=== PATIENT | male | born 1965 | race Caucasian/White ===

== ENCOUNTER 2023-06-01 21:59 | Outpatient (CLI) | payer OTHER, SELFPAY | END 2023-06-01 22:00 | disposition home or self-care (01) | PROVIDERS: Visit Provider Family Medicine | DX: R55 Syncope and collapse (principal) | CPT/HCPCS: A0425; A0427 ==

== ENCOUNTER 2023-06-01 22:39 | Inpatient (IN) | payer OTHER, SELFPAY ==
[2023-06-01] VITALS (10 sets, daily range): BP systolic 115–163; BP diastolic 67–78; PULSE 91–98; RESP 20; TEMP 36.3; O2SAT 96–100
--- NOTE | 2023-06-01 23:08 | ED_ITS ---
HPI - Syncope General Time Seen by Provider: 23:08 Date Seen: 06/01/23 Chief Complaint: Syncope/Fainted Stated Complaint: Syncopal Time Seen by Provider: 06/01/23 22:56 Source: patient and EMS Mode of arrival: EMS Limitations: no limitations History of Present Illness HPI narrative: 58-year-old male with history of hypertension and coronary atherosclerosis, presents today with a syncopal episode. 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 After the game, felt like he was taking a prolonged time to recover with continued fast heartbeat although no sensation of skipped beats, became lightheaded, stood up and passed out. Says he did hit his head, no other complaints although still having some point chest pain on the left. Related Data Home Medications Medication Instructions Recorded Confirmed chlorthalidone 25 mg tablet 25 mg PO DAILY 06/01/23 06/01/23 dulaglutide 0.75 mg/0.5 mL 0.75 mg subcut QWEEK 06/01/23 06/01/23 subcutaneous pen injector (Trulicity) duloxetine 60 mg capsule,delayed 80 mg PO DAILY 06/01/23 06/01/23 release (Cymbalta) lisinopril 40 mg tablet 40 mg PO DAILY 06/01/23 06/01/23 metformin 750 mg tablet,extended 750 mg PO DAILY 06/01/23 06/01/23 release 24 hr metoprolol tartrate 75 mg tablet 75 mg PO BID 06/01/23 06/01/23 rosuvastatin 40 mg tablet 40 mg PO DAILY 06/01/23 06/01/23 tramadol 50 mg tablet 25 mg PO Q4-6H PRN 06/01/23 06/01/23 Allergies Allergy/AdvReac Type Severity Reaction Status Date / Time droperidol Allergy Verified 06/01/23 22:53 PFSH PFSH Social History Smoking Status: Never smoker Non-prescribed substance use: denies use Exam Narrative: Exam Narrative: General: Well-developed and well-nourished, no acute distress Head: Bruising and abrasion over the left TMJ Eyes: Pupils are equal reactive, extraocular motions intact, conjunctiva clear ENT: Abrasion over the nasal bridge with question of slight deviation of the right, abrasion of the left ear helix with no laceration Neck: No midline cervical tenderness, full spontaneous range of motion the neck, trachea midline, no adenopathy Heart: Regular rate and rhythm no murmurs or thrills Lungs: Clear to auscultation bilaterally without wheezes or crackles. Point tenderness of the left anterior chest wall reproduces complaint. Abdomen: Soft, nontender, nondistended with active bowel sounds Musculoskeletal: No tenderness, deformity, or edema Neurologic: Awake, alert, and oriented x3, no gross focal neurologic deficits, cranial nerves intact as tested Psych: Mood and affect are appropriate Skin: No rashes Const: Vital Signs, click to edit/add: Vital Signs - 24 hr 06/01/23 22:44 06/01/23 22:47 06/01/23 22:48 Temperature 97.3 F L Pulse Rate 96 98 Pulse Rate [Pulse Oximeter] 94 Respiratory Rate 20 Blood Pressure 163/78 H Blood Pressure [Ri ght Upper Arm] 163/78 H Pulse Oximetry 99 99 99 Oxygen Delivery Me thod Room Air 06/01/23 23:00 06/01/23 23:02 06/01/23 23:15 Temperature Pulse Rate 93 93 91 Pulse Rate [Pulse Oximeter] Respiratory Rate Blood Pressure 124/73 Blood Pressure [Ri ght Upper Arm] Pulse Oximetry 96 99 99 Oxygen Delivery Me thod 06/01/23 23:30 06/01/23 23:32 06/01/23 23:33 Temperature Pulse Rate 91 91 91 Pulse Rate [Pulse Oximeter] Respiratory Rate Blood Pressure 115/67 Blood Pressure [Ri ght Upper Arm] Pulse Oximetry 98 100 99 Oxygen Delivery Me thod 06/01/23 23:45 06/02/23 00:00 06/02/23 00:05 Temperature Pulse Rate 91 89 87 Pulse Rate [Pulse Oximeter] Respiratory Rate Blood Pressure Blood Pressure [Ri ght Upper Arm] Pulse Oximetry 98 98 99 Oxygen Delivery Me thod 06/02/23 00:15 06/02/23 00:30 06/02/23 00:35 Temperature Pulse Rate 90 89 91 Pulse Rate [Pulse Oximeter] Respiratory Rate Blood Pressure Blood Pressure [Ri ght Upper Arm] Pulse Oximetry 95 96 97 Oxygen Delivery Me thod 06/02/23 00:45 06/02/23 01:00 06/02/23 01:05 Temperature Pulse Rate 88 89 90 Pulse Rate [Pulse Oximeter] Respiratory Rate Blood Pressure Blood Pressure [Ri ght Upper Arm] Pulse Oximetry 95 95 98 Oxygen Delivery Me thod 06/02/23 01:15 Temperature Pulse Rate 90 Pulse Rate [Pulse Oximeter] Respiratory Rate Blood Pressure Blood Pressure [Ri ght Upper Arm] Pulse Oximetry 98 Oxygen Delivery Me thod Course Course ED Course: Patient seen examined, prior records are reviewed. Patient presents today with a syncopal episode after activity. Facial abrasion left cheek abrasion, CT scan of the head and face ordered. This is preceded by palpitations and patient been having palpitations, cardiac evaluation ordered including EKG and troponin. Reevaluation(s) Time of Reevaluation #1: 23:29 Reevaluation #1: Reviewed most recent cardiology visit from May 31 when patient was seen for follow-up of coronary disease and palpitations, noted at that time to have elevated CT calcium score in 2014 which is been medically managed, negative stress test in 2020, negative stress test in May 2022, also had a Holter monitor 05/25/2023 which demonstrated sinus rhythm with intermittent first- degree AV block with for runs SVT longest run 11 beats, at that visit was instructed increase metoprolol to 75 mg twice a day which he has started. Time of Reevaluation #2: 00:27 Reevaluation #2: EKG independently interpreted by me without acute changes. Labs ordered and independently interpreted by me with potassium 2.4, oral and IV replacement ordered. Troponin is slightly elevated at 0.09, D-dimer is significantly elevated at 1.48. Creatinine slightly elevated for patient at 1.6, this may be causing slight elevation in the troponin. I did review outside records, most recent basic metabolic panel in October 2022 creatinine 0.96. Time of Reevaluation #3: 01:06 Reevaluation #3: Reviewed lab results with patient so far. We discussed his slightly elevated troponin in the setting of recent exercise as well as syncope and elevated creatinine, discussed repeat troponin testing at 1:30 a.m.. We also discussed the elevated D-dimer and concern for pulmonary embolism as source of elevated troponin, chest pain, and syncopal episode. Discussed that aspirin is not pro tective from DVT or pulmonary embolism. Discussed further testing with CT PE study. Patient declines this after discussing risks and benefits. We discussed disposition. If repeat troponin is stable patient will be admitted for replacement of potassium and further cardiac evaluation. If repeat troponin is elevated, patient will need to be transferred to center with angiogram capabilities. Additional Reevaluation(s): 2:19 a.m. check with nursing regarding repeat troponin, does not appear that has been done. CT scan of the head independently interpreted by me negative for acute findings, CT scan of the face independently interpreted by me negative for acute fracture. Chest x-ray interview leads reviewed by me with questionable fracture of the 5th rib on the left, no pneumothorax, hemothorax, or intrathoracic abnormalities. 3:07 a.m. repeat troponin is stable at 0.07. Patient will be admitted for further evaluation treatment for syncope with palpitations, hypokalemia, mild acute kidney injury. Care discussed with Dr. Shah, hospitalist for admission. Vital Signs Vital signs: Initial Vital Signs Temperature 97.3 F L 06/01/23 22:44 Temperature Source Temporal Artery Scan 06/01/23 22:44 Pulse Rate 94 06/01/23 22:44 Pulse Strength 3+ Normal 06/01/23 22:44 Respiratory Rate 20 06/01/23 22:44 Blood Pressure 163/78 H 06/01/23 22:44 Blood Pressure Mean 106 H 06/01/23 22:44 Blood Pressure Position Sitting 06/01/23 22:44 Pulse Oximetry 99 06/01/23 22:44 Oxygen Delivery Method Room Air 06/01/23 22:44 Vital Signs Temperature 97.3 F L 06/01/23 22:44 Pulse Rate 94 06/01/23 22:44 Respiratory Rate 20 06/01/23 22:44 Blood Pressure 163/78 H 06/01/23 22:44 Pulse Oximetry 99 06/01/23 22:44 Oxygen Delivery Method Room Air 06/01/23 22:44 Temperature 97.3 F L 06/01/23 22:44 Pulse Rate 90 06/02/23 01:15 Respiratory Rate 20 06/01/23 22:44 Blood Pressure 115/67 06/01/23 23:32 Pulse Oximetry 98 06/02/23 01:15 Oxygen Delivery Method Room Air 06/01/23 22:44 Medications Administered Medications: Discontinued Medications Generic Name Dose Route Start Last Admin Trade Name Freq PRN Reason Stop Dose Admin Acetaminophen 1,000 mg 06/02/23 00:06 06/02/23 00:26 Acetaminophen 500 Mg Tablet PO 06/02/23 00:07 1,000 mg ONCE ONE Administration Sodium Chloride 1,000 mls @ 1,000 mls/hr 06/01/23 23:30 06/02/23 02:35 0.9 % Sodium Chloride 1000 Ml IV 06/02/23 00:29 Infused .Q1H YESSY Infusion Potassium Chloride 10 meq in 100 mls @ 100 mls/hr 06/02/23 00:26 06/02/23 02:35 Potassium Chloride IVPB 06/02/23 01:25 Infused ONCE ONE Infusion Potassium Bicarbonate 25 meq 06/02/23 00:25 06/02/23 00:34 Potassium Bicarb 25 Meq Effervescent Tab PO 06/02/23 00:26 25 meq ONCE ONE Administration MDM - Syncope Lab Data Labs: Lab Results 06/01/23 06/01/23 06/02/23 Range/Units 23:27 23:55 00:00 WBC 13.13 H (4.50-11.00) K/uL RBC 4.93 (4.30-5.90) m/uL Hgb 13.2 L (13.5-17.5) gm/dL Hct 39.6 (37.0-53.0) % MCV 80 (80-100) fL MCH 27 (26-34) pg MCHC 33 (32-36) gm/dL RDW Coeff of Cabrera 13.9 (11.5-15.5) % Plt Count 297 (140-440) K/uL Neut % (Auto) 71.6 (42.0-72.0) % Lymph % (Auto) 19.2 L (20-44) % Tucker % (Auto) 8.4 (0.0-11.0) % Eos % (Auto) 0.2 (0.0-7.0) % Baso % (Auto) 0.2 (0.0-3.0) % Neut # (Auto) 9.40 H (1.7-7.0) K/uL Lymph # (Auto) 2.50 (0.90-2.90) K/uL Tucker # (Auto) 1.10 H (0.00-0.90) K/UL Eos # (Auto) 0.00 (0.00-0.50) K/uL Baso # (Auto) 0.00 (0.00-0.30) K/uL Abs Immat Gran (auto) 0.10 (0.00-0.30) K/uL Imm/Tot Granulo (auto) 0.4 % D-Dimer Quant (PE/DVT) 1.48 H (0.00-0.50) ug/ml Sodium 135 (135-149) mmol/L Potassium 2.4 L* (3.6-5.1) mmol/L Chloride 96 (96-114) mmol/L Carbon Dioxide 24 (20-32) mmol/L Anion Gap 15 (7-15) mEq/L BUN 24 (7-30) mg/dL Creatinine 1.6 H (0.5-1.5) mg/dL Estimated GFR 49 ml/min Glucose 119 H (60-115) mg/dL Calcium 9.4 (8.4-10.6) mg/dL Magnesium 1.7 (1.5-2.6) mg/dL NT-Pro-B Natriuret Pep 595 pg/mL POC Troponin I 0.07 H (0.01-0.04) ng/ml 06/02/23 Range/Units 01:30 WBC (4.50-11.00) K/uL RBC (4.30-5.90) m/uL Hgb (13.5-17.5) gm/dL Hct (37.0-53.0) % MCV (80-100) fL MCH (26-34) pg MCHC (32-36) gm/dL RDW Coeff of Cabrera (11.5-15.5) % Plt Count (140-440) K/uL Neut % (Auto) (42.0-72.0) % Lymph % (Auto) (20-44) % Tucker % (Auto) (0.0-11.0) % Eos % (Auto) (0.0-7.0) % Baso % (Auto) (0.0-3.0) % Neut # (Auto) (1.7-7.0) K/uL Lymph # (Auto) (0.90-2.90) K/uL Tucker # (Auto) (0.00-0.90) K/UL Eos # (Auto) (0.00-0.50) K/uL Baso # (Auto) (0.00-0.30) K/uL Abs Immat Gran (auto) (0.00-0.30) K/uL Imm/Tot Granulo (auto) % D-Dimer Quant (PE/DVT) (0.00-0.50) ug/ml Sodium (135-149) mmol/L Potassium (3.6-5.1) mmol/L Chloride (96-114) mmol/L Carbon Dioxide (20-32) mmol/L Anion Gap (7-15) mEq/L BUN (7-30) mg/dL Creatinine (0.5-1.5) mg/dL Estimated GFR ml/min Glucose (60-115) mg/dL Calcium (8.4-10.6) mg/dL Magnesium (1.5-2.6) mg/dL NT-Pro-B Natriuret Pep pg/mL POC Troponin I 0.07 H (0.01-0.04) ng/ml Discharge Plan Discharge Clinical Impression: Acute kidney injury, Heart palpitations, Coronary artery disease, Syncope, Acute hypokalemia, Type 2 diabetes mellitus Prescriptions: No Action metoprolol tartrate 75 mg tablet 75 mg PO BID lisinopril 40 mg tablet 40 mg PO DAILY chlorthalidone 25 mg tablet 25 mg PO DAILY rosuvastatin 40 mg tablet 40 mg PO DAILY metformin 750 mg tablet extended release 24 hr 750 mg PO DAILY duloxetine [Cymbalta] 60 mg capsule,delayed release(DR/EC) 80 mg PO DAILY Trulicity 0.75 mg/0.5 mL pen injector 0.75 mg subcut QWEEK tramadol 50 mg tablet 25 mg PO Q4-6H PRN Follow Up/Referrals: Provider,Not a Local [Primary Care Provider] -
--- NOTE | 2023-06-01 23:26 | CRLHL7_ITS ---
For Patients: As a result of the Cures Act, medical imaging exams and procedure reports are released immediately into your electronic medical record. You may view this report before your referring provider. If you have questions, please contact your health care provider. INDICATION: syncope, fall...impact left upper chest and face TECHNIQUE: CT maxillofacial without contrast. COMPARISON: None. FINDINGS: Facial bones: No fractures or bone lesions. Specifically the nasal bones, temporomandibular joints, maxilla and mandible appear intact. Orbits and globes: Borderline bilateral proptosis. Globes are intact. No sign of intraorbital hemorrhage or emphysema. Sinuses: No acute or significant findings. Soft tissues: Small left frontal scalp contusion. IMPRESSION: Small left frontal scalp contusion. No evidence of facial fracture. Please note that all CT scans at this facility use dose modulation, iterative reconstruction, and/or weight-based dosing when appropriate to reduce radiation dose to as low as reasonably achievable. Dictated by Donavon Brooke MD @ 06/02/2023 5:35:25 AM (Electronically Signed)
--- NOTE | 2023-06-01 23:26 | CRLHL7_ITS ---
For Patients: As a result of the Century Cures Act, medical imaging exams and procedure reports are released immediately into your electronic medical record. You may view this report before your referring provider. If you have questions, please contact your health care provider. INDICATION: syncope, fall. impact left upper chest and face TECHNIQUE: Head CT without contrast. COMPARISON: None. FINDINGS: CSF spaces: Mild diffuse global parenchymal volume loss. Brain parenchyma and extra-axial spaces: There are mild nonspecific low attenuation white matter changes consistent with chronic microvascular disease. No sign of mass effect, hemorrhage, or midline shift. 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 Skull base and calvarium: The visualized paranasal sinuses and mastoid air cells demonstrate no acute or significant findings. No skull fractures. Small left frontal scalp contusion. IMPRESSION: 1. Small left frontal scalp contusion. No evidence of underlying skull fracture or intracranial hemorrhage. 2. Mild global parenchymal volume loss and chronic microvascular ischemic changes. Remote right basal ganglia lacunar type infarct. Please note that all CT scans at this facility use dose modulation, iterative reconstruction, and/or weight-based dosing when appropriate to reduce radiation dose to as low as reasonably achievable. Dictated by Donavon Brooke MD @ 06/02/2023 5:29:09 AM (Electronically Signed)
[2023-06-02] VITALS (35 sets, daily range): BP systolic 101–137; BP diastolic 62–88; PULSE 69–91; RESP 16–20; TEMP 36.7; O2SAT 94–99; BMI 35.8
[2023-06-02 00:05] LABS: Basophils Percent Auto 0.2 % (0.0-3.0); Eosinophils Percent Auto 0.2 % (0.0-7.0); Hematocrit 39.6 % (37.0-53.0); Hemoglobin* 13.2 gm/dL (13.5-17.5); Immature Granulocytes Pct Auto 0.4 %; Lymphocytes Percent Auto 19.2 % (20-44); Mean Corpuscular HGB Conc 33 gm/dL (32-36); Mean Corpuscular Hemoglobin 27 pg (26-34); Mean Corpuscular Volume 80 fL (80-100); Monocytes Percent Auto 8.4 % (0.0-11.0); Neutrophils Percent Auto 71.6 % (42.0-72.0); Platelet Count* 297 K/uL (140-440); RDW Coefficient of Variation % 13.9 % (11.5-15.5); Red Blood Count 4.93 m/uL (4.30-5.90); White Blood Count* 13.13 K/uL (4.50-11.00)
[2023-06-02 00:11] LABS: Slide Review Reflex No
[2023-06-02 00:17] LABS: Chloride* 96 mmol/L (96-114); Sodium* 135 mmol/L (135-149)
[2023-06-02 00:20] LABS: Anion Gap 15 mEq/L (7-15); Blood Urea Nitrogen* 24 mg/dL (7-30); Calcium* 9.4 mg/dL (8.4-10.6); Carbon Dioxide* 24 mmol/L (20-32); Creatinine* 1.6 mg/dL (0.5-1.5); Estimated Glomerular Filt Rate 49 ml/min; Glucose* 119 mg/dL (60-115)
[2023-06-02 00:22] LABS: D Dimer Quantitative* 1.48 ug/ml (0.00-0.50)
[2023-06-02] MEDS: 0.9 % SODIUM CHLORIDE 1000 ml 1,000 ML IV ×2 (00:22→05:26)
[2023-06-02 00:24] LABS: Magnesium* 1.7 mg/dL (1.5-2.6)
[2023-06-02 00:24] LABS: Troponin, Point-of-Care* 0.07 ng/ml (0.01-0.04)
[2023-06-02 00:25] LABS: Potassium* 2.4 mmol/L (3.6-5.1)
[2023-06-02] MEDS: ACETAMINOPHEN 500 MG TABLET 1000 MG PO (00:26)
[2023-06-02 00:34] LABS: NT Pro B Type NatriureticPept* 595 pg/mL
[2023-06-02] MEDS: POTASSIUM BICARB 25 MEQ EFFERVESCENT TAB PO ×2 (00:34→03:29)
[2023-06-02] MEDS: POTASSIUM CHLORIDE 10 MEQ/100 ML PIGGYBACK 100 MEQ IVPB (00:43)
--- NOTE | 2023-06-02 01:21 | CRLHL7_ITS ---
For Patients: As a result of the Cures Act, medical imaging exams and procedure reports are released immediately into your electronic medical record. You may view this report before your referring provider. If you have questions, please contact your health care provider. INDICATION: syncope, fall, impact left upper chest and face, pain marked with BB TECHNIQUE: Chest and left ribs 3 views. COMPARISON: None FINDINGS: Cardiovascular and mediastinum: Mild enlargement of the cardiomediastinal silhouette. Lungs and pleural spaces: Lungs are clear. No sign of infiltrate. No sign of pleural effusion. No pneumothorax. Bones and soft tissues: Suspect nondisplaced fracture involving the posterior left 5th rib. IMPRESSION: 1. Suspect nondisplaced fracture involving the posterior left 5th rib. 2. Mild enlargement of the cardiomediastinal silhouette. Dictated by Donavon Brooke MD @ 06/02/2023 5:39:56 AM (Electronically Signed)
[2023-06-02 02:56] LABS: Troponin, Point-of-Care* 0.07 ng/ml (0.01-0.04)
--- NOTE | 2023-06-02 03:29 | ED.NURSE ---
nurse to nurse report given to shani BRANDON on med surg. patient going to room 261.
--- NOTE | 2023-06-02 04:34 | W.PM.TELEH&P ---
Telehealth- H&P: HPI History of Present Illness Time Seen by Provider: 04:00 Date Seen: 06/02/23 Chief complaint: Syncopal Narrative: Mega Nance is seen as an Interactive Telehealth visit. Mega Nance is a 58 yearGentleman with a past medical history of essential hypertension, type 2 diabetes, orthostatic hypotension and nonobstructive coronary artery disease who presented to the emergency room tonight after a syncopal episode. 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 After the game in the locker room he felt pretty much worn out and just took a longer time to recover than he anticipated. He was drinking some beverages and he got up to get another glass of water and he felt immediately lightheaded and he turned around to go back to the chair and next he knew he woke up on the ground where he did hit his head on the bench. He he does not think he was out for more than 2 seconds. He was able to get himself up unassisted and to still felt lightheaded he drank some water and asked an wellness trainer to check his blood pressure which was 100/70. Orthostatics done there by the paramedics had a blood pressure 100/70 but when he sat up it went to 80/60 his pulse was around 100 and when he sat up it went to 140. He came to the emergency room. He did not have any chest pain or any unusual breathlessness during the game. He had some chest pain afterwards over the left chest wall where he fell and that was tender to the touch. He has not had any recent illnesses. He did have some medication changes by his licensed aircraft maintenance engineer recently. Because of his history of orthostatic dizziness and episodes of palpitations he has had a recent 48-hour Holter monitor that showed some short runs of SVT to 11 beats occasional PACs and PVCs. And his licensed aircraft maintenance engineer recommended increasing his metoprolol from 50 mg twice daily to 75 mg twice daily. He took the first higher dose the evening before these ballgame. In the emergency room he had 2 troponins 0.07 that are slightly elevated than the norm here but they did not change.EKG was interpreted as nonacute. He was discovered to be critically hypokalemic down to 2.4. He received 10 mill equivalents of IV potassium and 50 mill equivalents of p.o. potassium in the emergency room he is being admitted for observation status for telemetry after syncopal episode Review of Systems Narrative: Review of systems is positive for recent onset of palpitations have been evaluated by the licensed aircraft maintenance engineer and Holter monitor new onset positional orthostatic dizziness. 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 Blood sugars have been under good control he has a continuous glucose monitor. No recent illnesses.Review of systems otherwise negative [facility] Medical History (Updated 06/02/23 @ 05:21 by Xu Shah MD) Type 2 diabetes mellitus ?E11.9 - Type 2 diabetes mellitus without complications (ICD-10) Coronary artery disease ?I25.10 - Atherosclerotic heart disease of [place] coronary artery without angina pectoris (ICD-10) Heart palpitations ?R00.2 - Palpitations (ICD-10) Social History (Updated 06/02/23 @ 04:48 by Xu Shah MD) Narrative: From [place]. . 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 non-smoker What is your current living situation?: I presently have a place to live Problems where you live: no known problems Problems where you live details: n/a In the past 12 months, utilities in danger of being shut off: no In past 12 months, lack of transportation kept you from medical appts, meetings, work, or getting things needed for daily living: no In the past 12 mos, have been you worried that your food would run out before you had money to buy more?: never true In the past 12 mos, the food you bought just didn't last and you didn't have money to buy more?: never true Highest level of school completed/degree received: Master's degree Smoking Status: Never smoker How often do you have a drink containing alcohol: never AUDIT-C Alcohol total score: 0 Non-prescribed substance use: denies use Caffeine: Yes How often does anyone, including family, friends and others, physically hurt you: never How often does anyone, including family, friends and others, insult or talk down to you: never How often does anyone, including family, friends and others, threaten you with harm: never How often does anyone, including family, friends and others, scream or curse at you: never service: No Meds Home Medications and Allergies Home Medications Medication Instructions Recorded Confirmed Type chlorthalidone 25 mg tablet 25 mg PO DAILY 06/01/23 06/01/23 History dulaglutide 0.75 mg/0.5 mL 0.75 mg subcut QWEEK 06/01/23 06/01/23 History subcutaneous pen injector (Trulicity) duloxetine 60 mg capsule,delayed 80 mg PO DAILY 06/01/23 06/01/23 History release (Cymbalta) lisinopril 40 mg tablet 40 mg PO DAILY 06/01/23 06/01/23 History metformin 750 mg tablet,extended 750 mg PO DAILY 06/01/23 06/01/23 History release 24 hr metoprolol tartrate 75 mg tablet 75 mg PO BID 06/01/23 06/01/23 History rosuvastatin 40 mg tablet 40 mg PO DAILY 06/01/23 06/01/23 History tramadol 50 mg tablet 25 mg PO Q4-6H PRN 06/01/23 06/01/23 History Home Medication Comments: Metoprolol was just recently increased from 50 twice daily to 75 mg twice daily starting yesterday. Allergies Allergy/AdvReac Type Severity Reaction Status Date / Time droperidol Allergy Verified 06/01/23 22:53 Exam Narrative Exam Narrative: Physical Exam GENERAL: ?vital signs reviewed, well developed and nourished, in no distressPleasant cooperative HEENT: Positive small abrasion over the bridge of the nose as well as contusion on the left zygomatic area and small abrasion over the left pinna pupils are equal round and reactive to light, extraocular movements are grossly within normal limits and oral mucosa is moist. NECK: Supple without lymphadenopathy or thyromegaly according to nursing staff examination observationNo midline tenderness HEART: Regular rate and rhythm without any rubs, murmurs, or gallops. Chest wall positive tenderness over the left upper thorax at the costal chondral junction without crepitus LUNGS: Clear to auscultation bilaterally with good air movement throughout ABDOMEN: Observation from nurse assisted exam, abdomen appears soft, nontender, and nondistended with Positive bowel sounds noted. EXTREMITIES: Strength and sensation is observed to be grossly within normal limits in the upper and lower extremities.? No focal strength deficit is observed. SKIN:? Observed warm and dry with color normal Const Vital Signs, click to edit/add: Vital Signs - 24 hr 06/01/23 22:44 06/01/23 22:47 06/01/23 22:48 Temperature 97.3 F L Pulse Rate 96 98 Pulse Rate [Pulse Oximeter] 94 Respiratory Rate 20 Blood Pressure 163/78 H Blood Pressure [Left Arm] Blood Pressure [Right Upper Arm] 163/78 H Pulse Oximetry 99 99 99 Oxygen Delivery Method Room Air 06/01/23 23:00 06/01/23 23:02 06/01/23 23:15 Temperature Pulse Rate 93 93 91 Pulse Rate [Pulse Oximeter] Respiratory Rate Blood Pressure 124/73 Blood Pressure [Left Arm] Blood Pressure [Right Upper Arm] Pulse Oximetry 96 99 99 Oxygen Delivery Method 06/01/23 23:30 06/01/23 23:32 06/01/23 23:33 Temperature Pulse Rate 91 91 91 Pulse Rate [Pulse Oximeter] Respiratory Rate Blood Pressure 115/67 Blood Pressure [Left Arm] Blood Pressure [Right Upper Arm] Pulse Oximetry 98 100 99 Oxygen Delivery Method 06/01/23 23:45 06/02/23 00:00 06/02/23 00:05 Temperature Pulse Rate 91 89 87 Pulse Rate [Pulse Oximeter] Respiratory Rate Blood Pressure Blood Pressure [Left Arm] Blood Pressure [Right Upper Arm] Pulse Oximetry 98 98 99 Oxygen Delivery Method 06/02/23 00:15 06/02/23 00:30 06/02/23 00:35 Temperature Pulse Rate 90 89 91 Pulse Rate [Pulse Oximeter] Respiratory Rate Blood Pressure Blood Pressure [Left Arm] Blood Pressure [Right Upper Arm] Pulse Oximetry 95 96 97 Oxygen Delivery Method 06/02/23 00:45 06/02/23 01:00 06/02/23 01:05 Temperature Pulse Rate 88 89 90 Pulse Rate [Pulse Oximeter] Respiratory Rate Blood Pressure Blood Pressure [Left Arm] Blood Pressure [Right Upper Arm] Pulse Oximetry 95 95 98 Oxygen Delivery Method 06/02/23 01:15 06/02/23 01:47 06/02/23 02:00 Temperature Pulse Rate 90 91 89 Pulse Rate [Pulse Oximeter] Respiratory Rate Blood Pressure Blood Pressure [Left Arm] Blood Pressure [Right Upper Arm] Pulse Oximetry 98 94 94 Oxygen Delivery Method 06/02/23 02:15 06/02/23 02:30 06/02/23 02:45 Temperature Pulse Rate 89 89 87 Pulse Rate [Pulse Oximeter] Respiratory Rate Blood Pressure Blood Pressure [Left Arm] Blood Pressure [Right Upper Arm] Pulse Oximetry 97 96 94 Oxygen Delivery Method 06/02/23 03:00 06/02/23 03:15 06/02/23 04:02 Temperature Pulse Rate 84 88 Pulse Rate [Pulse Oximeter] 81 Respiratory Rate 16 Blood Pressure Blood Pressure [Left Arm] 117/75 Blood Pressure [Right Upper Arm] Pulse Oximetry 96 95 97 Oxygen Delivery Method Room Air Hospitalist - H&P: Result Labs Labs: Laboratory Results - last 24 hr 06/01/23 06/01/23 06/02/23 23:27 23:55 00:00 WBC 13.13 H RBC 4.93 Hgb 13.2 L Hct 39.6 MCV 80 MCH 27 MCHC 33 RDW Coeff of [place]rera 13.9 Plt Count 297 Neut % (Auto) 71.6 Lymph % (Auto) 19.2 L [place] % (Auto) 8.4 Eos % (Auto) 0.2 Baso % (Auto) 0.2 Neut # (Auto) 9.40 H Lymph # (Auto) 2.50 [place] # (Auto) 1.10 H Eos # (Auto) 0.00 Baso # (Auto) 0.00 Abs Immat Gran (auto) 0.10 Imm/Tot Granulo (auto) 0.4 D-Dimer Quant (PE/DVT) 1.48 H Sodium 135 Potassium 2.4 L* Chloride 96 Carbon Dioxide 24 Anion Gap 15 BUN 24 Creatinine 1.6 H Estimated GFR 49 Glucose 119 H Calcium 9.4 Magnesium 1.7 NT-Pro-B Natriuret Pep 595 POC Troponin I 0.07 H 06/02/23 01:30 WBC RBC Hgb Hct MCV MCH MCHC RDW Coeff of [place]rera Plt Count Neut % (Auto) Lymph % (Auto) [place] % (Auto) Eos % (Auto) Baso % (Auto) Neut # (Auto) Lymph # (Auto) [place] # (Auto) Eos # (Auto) Baso # (Auto) Abs Immat Gran (auto) Imm/Tot Granulo (auto) D-Dimer Quant (PE/DVT) Sodium Potassium Chloride Carbon Dioxide Anion Gap BUN Creatinine Estimated GFR Glucose Calcium Magnesium NT-Pro-B Natriuret Pep POC Troponin I 0.07 H ECG Attestation: I personally reviewed and interpreted this ECG as follows: (Sinus rhythm rate 90 bpm [place] -85 left anterior fascicular block prolonged QT corrected 0.51 no ischemic change) ECG interpretation date: 06/02/23 ECG interpretation time: 05:05 Prior ECG tracings: not available for review Assessment and Plan Assessment and plan (1) Syncope: Status: Acute (2) Acute hypokalemia: Status: Acute (3) Acute kidney injury: Status: Acute (4) Type 2 diabetes mellitus: Status: Acute Plan 58-year-old gentleman with history of hypertension well-controlled type 2 diabetes palpitations and recent orthostatic dizziness who had a syncopal episode after 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 Etiology most likely is a combination of volume depletion from exertion as well as the severe hypokalemia and recent increase in beta-martell dosage. Do not suspect ischemia. 1. Mid observation telemetry 2. Replete potassium 3. Recheck BMP magnesium and troponin in the a.m. 4. Another liter of normal saline 5. Permanently discontinue chlorthalidone 6. Reduce metoprolol back down to 50 mg twice daily 7. Refer back to his primary licensed aircraft maintenance engineer for consideration of tilt table testing or other evaluation and echocardiogram 8. DVT prophylaxis will be early ambulation anticipate early discharge 9. 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 Full code Telehealth: Statement Statement Telehealth Visit: Today's History and Physical is provided via interactive telehealth by Xu Shah MD.? Patient is located at [facility].? Provider is located at [facility].? Nursing staff assisted with the patient's exam. The visit being done today meets criteria for a telehealth visit and the patient or patient?s parent/guardian is aware the visit is a telehealth visit. Camera Start Time: 04:00 Camera End Time: 04:25
[2023-06-02] MEDS: POTASSIUM CHLORIDE 10 MEQ CAPSULE ER 20 MEQ PO (05:22)
[2023-06-02] MEDS: TRAMADOL HCL 50 MG TABLET PO (05:22)
--- NOTE | 2023-06-02 06:21 | PC.NURSE ---
Arrived to floor around 0330. A&O, pleasant and cooperative. VSS w/ sats >90% on RA. Denies lightheaded or dizziness. Ambulated to the bathroom w/ SBA and tolerated well. Pt had abrasions on left side of face and ear from fall. Reports 5/10 pain in left chest. See eMAR for intervention. Denies SOB. ?
[2023-06-02 08:41] LABS: Hematocrit 36.1 % (37.0-53.0); Hemoglobin* 11.8 gm/dL (13.5-17.5); Mean Corpuscular HGB Conc 33 gm/dL (32-36); Mean Corpuscular Hemoglobin 27 pg (26-34); Mean Corpuscular Volume 82 fL (80-100); Platelet Count* 265 K/uL (140-440); Red Blood Count 4.39 m/uL (4.30-5.90); White Blood Count* 8.65 K/uL (4.50-11.00)
[2023-06-02 08:45] LABS: Slide Review Reflex No
[2023-06-02 08:54] LABS: Chloride* 97 mmol/L (96-114)
[2023-06-02 08:55] LABS: Potassium* 3.1 mmol/L (3.6-5.1); Sodium* 135 mmol/L (135-149)
[2023-06-02 08:56] LABS: Hemoglobin A1C* 6.3 % (0-5.6)
[2023-06-02 08:57] LABS: Creatinine* 1.6 mg/dL (0.5-1.5); Est. Creatinine Clearance* 56.18; Estimated Glomerular Filt Rate 49 ml/min
[2023-06-02 08:58] LABS: Anion Gap 9 mEq/L (7-15); Blood Urea Nitrogen* 26 mg/dL (7-30); Calcium* 8.3 mg/dL (8.4-10.6); Carbon Dioxide* 29 mmol/L (20-32); Glucose* 86 mg/dL (60-115); Magnesium* 1.8 mg/dL (1.5-2.6); Prothrombin Time 13.8 Seconds
[2023-06-02 09:16] LABS: Troponin I* 0.14 ng/mL (0.01-0.04)
[2023-06-02] MEDS: lisinopriL 20 MG TABLET 40 MG PO (09:20)
[2023-06-02] MEDS: ROSUVASTATIN CALCIUM 10 MG TABLET 40 MG PO (09:20)
[2023-06-02] MEDS: METFORMIN 500 MG TABLET 750 MG PO (09:20)
[2023-06-02] MEDS: DULOXETINE HCL 20 MG CAPSULE DR 80 MG PO (09:21)
[2023-06-02] MEDS: METOPROLOL TARTRATE 50 MG TABLET PO (09:25)
--- NOTE | 2023-06-02 09:25 | CRLHL7_ITS ---
For Patients: As a result of the Cures Act, medical imaging exams and procedure reports are released immediately into your electronic medical record. You may view this report before your referring provider. If you have questions, please contact your health care provider. INDICATION: Chest pain. TECHNIQUE: Chest 1 views. COMPARISON: Rib radiographs on 06/02/2023 FINDINGS/IMPRESSION: The cardiomediastinal silhouette is mildly enlarged but overall stable given differences in technique compared to prior examination. There is no focal airspace consolidation, large pleural effusion, or pneumothorax. Previously visualized, suspected nondisplaced fracture involving the posterior left 5th rib is not well seen on this exam. Dictated by Rory Vargas MD @ 06/02/2023 10:32:01 AM (Electronically Signed)
[2023-06-02] MEDS: ASPIRIN 81 MG TAB.CHEW 324 MG PO (09:30)
[2023-06-02] MEDS: SODIUM CHLORIDE 0.9 % (FLUSH) 10 ML SYRINGE 5 ML IVF (09:39)
[2023-06-02] MEDS: NITROGLYCERIN 0.4 MG TAB.SUBL SUBLINGUAL (09:40)
[2023-06-02 09:59] LABS: Troponin I* 0.07 ng/mL (0.01-0.04)
--- NOTE | 2023-06-02 10:38 | NUTR.NU ---
RDN with nutrition screen related to diet education. Patient admitted with syncope and hypokalemia. History of diabetes mellitus type 2. Current diet is diabetic. Height 6ft 1in; Weight 271lb 2oz, BMI is obese at 35.8kg/m2. RDN visited with patient whom reports not following a diet at home. He reports his weight has been stable. RDN offered diet education related to diabetes, however patient declined. He had no questions or concerns. RDN will continue to monitor and follow-up prn.
--- NOTE | 2023-06-02 11:30 | P.DS_ITS ---
DS: Providers Provider Date Seen: 06/02/23 Date of admission: 06/02/23 09:38 Primary care physician: Not a Local Provider Admitting Clinician: aJye Lloyd MD Attending Physician on discharge: Jaye Lloyd MD DS: Diagnosis Discharge Diagnosis (1) NSTEMI (non-ST elevated myocardial infarction): Status: Acute Problem details: -Troponin uptrending -324 aspirin chewed, metoprolol, nitro given (no change) - Heparin drip bolus and drip initiated -soft blood pressures; aware of possible posterior extension -continuous pulse ox, cardiac monitoring, serial EKGs -cardiology consult this morning with [facility] (continuity of care; pt's cards group) - accepted transfer. spoke with and text with Dr. Kennedy; Dr. Villavicencio accepting. However later in the morning there were no beds. I spoke with Dr. Carter, [place] who had an accepted the patient at about noon on 06/02/2023 (2) Coronary artery disease: Status: Acute Problem details: -abnl calcium score; passed nuclear stress test in 05/05, recent Holter with nonspecific/Non sustained SVT -dm, htn, obesity, +family hx -syncope, orthostasis after basketball, evening of 06/01/23 (3) Syncope: Status: Acute Problem details: combination of dehydration, recent increased doses of metoprolol, acute hypokalemia and exertion (4) Acute hypokalemia: Status: Acute Problem details: Replaced IV and p.o. (5) Acute kidney injury: Status: Acute Problem details: Baseline creatinine 1.0, currently 1.6 (6) Rib fracture: Status: Acute Problem details: nondisplaced fracture involving the posterior left 5th rib. - likely sustained during syncope 06/01/23 (7) Orthostasis: Status: Acute Problem details: acutely orthostatic when paramedics arrived 06/01 (8) Hypertension: Status: Acute (9) Type 2 diabetes mellitus: Status: Acute Problem details: well managed. A1C 06/02 6.3 DS: Summary Hospital Course Hospital Course: FINAL DIAGNOSIS/FOLLOW UP ISSUES: -NSTEMI, at risk for extension. Transferring acutely for cardiology evaluation 06/02 BRIEF HOSPITAL COURSE: Patient was admitted for overnight. Synopsis of acute inpatient issues are outlined above. Chronic medical conditions with notable findings outlined above. The morning of 06/02 I spent 60 minutes in direct patient care; I admitted this patient to inpatient and CCU status following identification of an anterior- lateral NSTEMI/ACS. V3-V6 revealed ST segment changes without elevation that were new when compared to the admission ECG. Troponin doubled overnight. Pt has had soft blood pressures but not overtly hypotensive. There is left sided chest pain but the patient has a known left 5th rib fracture from his syncopal episode. This pain is unchanged by nitro and is worsened by palpation and deep inspiration. 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 I [facility]. I called and conferred with Dr. Carter from [place]. He accepted care of this patient. DISCHARGE MEDICATIONS: On Heparin gtt Specific instructions to the patient and follow-up are outlined below. REVIEW OF SYSTEMS chest wall pain; left side. No voiding difficulties NPO no abdominal pain. PHYSICAL EXAM: CONSTITUTIONAL: VITAL SIGNS: see record. HEENT: Normocephalic, atraumatic. PERRL, EOMI, conjunctivae pink, no scleral icterus. Ears and nose externally normal. Pharynx normal. NECK: No JVD. No carotid bruit, no thyromegaly, no adenopathy. CHEST: Clear to auscultation bilaterally. HEART: S1 and S2 normal. Edema none. ABDOMEN: Soft, nontender. Normal bowel sounds. MUSCULOSKELETAL: No gross joint deformity or swelling. NEURO: Cranial nerves intact. Grossly intact. No asymmetric findings. SKIN: No rashes, petechiae, concerning changes PSYCHIATRIC: Mood euthymic. DISPOSITION: Transfer to [facility] Time spent on discharge 37 minutes. Status at Discharge Functional status at discharge: independent ambulation Overall status at discharge: patient is progressing back to baseline Time Spent with Patient Time attestation: Total time spent providing and/or coordinating discharge services: Time spent: Greater than 30 minutes Exam Const: Vital Signs, click to edit/add: Vital Signs - 24 hr 06/01/23 22:44 06/01/23 22:47 06/01/23 22:48 Temperature 97.3 F L Pulse Rate 96 98 Pulse Rate [Pulse Oximeter] 94 Respiratory Rate 20 Blood Pressure 163/78 H Blood Pressure [Le ft Arm] Blood Pressure [Ri ght Upper Arm] 163/78 H Pulse Oximetry 99 99 99 Oxygen Delivery Me thod Room Air 06/01/23 23:00 06/01/23 23:02 06/01/23 23:15 Temperature Pulse Rate 93 93 91 Pulse Rate [Pulse Oximeter] Respiratory Rate Blood Pressure 124/73 Blood Pressure [Le ft Arm] Blood Pressure [Ri ght Upper Arm] Pulse Oximetry 96 99 99 Oxygen Delivery Me thod 06/01/23 23:30 06/01/23 23:32 06/01/23 23:33 Temperature Pulse Rate 91 91 91 Pulse Rate [Pulse Oximeter] Respiratory Rate Blood Pressure 115/67 Blood Pressure [Le ft Arm] Blood Pressure [Ri ght Upper Arm] Pulse Oximetry 98 100 99 Oxygen Delivery Me thod 06/01/23 23:45 06/02/23 00:00 06/02/23 00:05 Temperature Pulse Rate 91 89 87 Pulse Rate [Pulse Oximeter] Respiratory Rate Blood Pressure Blood Pressure [Le ft Arm] Blood Pressure [Ri ght Upper Arm] Pulse Oximetry 98 98 99 Oxygen Delivery Me thod 06/02/23 00:15 06/02/23 00:30 06/02/23 00:35 Temperature Pulse Rate 90 89 91 Pulse Rate [Pulse Oximeter] Respiratory Rate Blood Pressure Blood Pressure [Le ft Arm] Blood Pressure [Ri ght Upper Arm] Pulse Oximetry 95 96 97 Oxygen Delivery Me thod 06/02/23 00:45 06/02/23 01:00 06/02/23 01:05 Temperature Pulse Rate 88 89 90 Pulse Rate [Pulse Oximeter] Respiratory Rate Blood Pressure Blood Pressure [Le ft Arm] Blood Pressure [Ri ght Upper Arm] Pulse Oximetry 95 95 98 Oxygen Delivery Me thod 06/02/23 01:15 06/02/23 01:47 06/02/23 02:00 Temperature Pulse Rate 90 91 89 Pulse Rate [Pulse Oximeter] Respiratory Rate Blood Pressure Blood Pressure [Le ft Arm] Blood Pressure [Ri ght Upper Arm] Pulse Oximetry 98 94 94 Oxygen Delivery Me thod 06/02/23 02:15 06/02/23 02:30 06/02/23 02:45 Temperature Pulse Rate 89 89 87 Pulse Rate [Pulse Oximeter] Respiratory Rate Blood Pressure Blood Pressure [Le ft Arm] Blood Pressure [Ri ght Upper Arm] Pulse Oximetry 97 96 94 Oxygen Delivery Me thod 06/02/23 03:00 06/02/23 03:15 06/02/23 04:02 Temperature Pulse Rate 84 88 Pulse Rate [Pulse Oximeter] 81 Respiratory Rate 16 Blood Pressure Blood Pressure [Le ft Arm] 117/75 Blood Pressure [Ri ght Upper Arm] Pulse Oximetry 96 95 97 Oxygen Delivery Me thod Room Air 06/02/23 05:49 06/02/23 07:03 06/02/23 11:00 Temperature 98.1 F Pulse Rate 74 76 Pulse Rate [Pulse Oximeter] 71 Respiratory Rate 20 Blood Pressure Blood Pressure [Le ft Arm] 113/76 Blood Pressure [Ri ght Upper Arm] Pulse Oximetry 97 Oxygen Delivery Me thod Room Air DS: Data Data Completed and Pending Labs on day of discharge: Labs from last 24 hours 06/02/23 06/02/23 06/02/23 09:24 08:29 01:30 WBC 8.65 RBC 4.39 Hgb 11.8 L Hct 36.1 L MCV 82 MCH 27 MCHC 33 RDW Coeff of [place] Plt Count 265 Neut % (Auto) Lymph % (Auto) [place] % (Auto) Eos % (Auto) Baso % (Auto) Neut # (Auto) Lymph # (Auto) [place] # (Auto) Eos # (Auto) Baso # (Auto) Abs Immat Gran (auto) Imm/Tot Granulo (auto) INR 1.00 D-Dimer Quant (PE/DVT) Sodium 135 Potassium 3.1 L Chloride 97 Carbon Dioxide 29 Anion Gap 9 BUN 26 Creatinine 1.6 H Estimated Creat Clear 56.18 Estimated GFR 49 Glucose 86 Hemoglobin A1c 6.3 H Calcium 8.3 L Magnesium 1.8 Troponin I 0.14 H* NT-Pro-B Natriuret Pep Lab Acknowledgement Test Added POC Troponin I 0.07 H 06/02/23 06/01/23 06/01/23 00:00 23:55 23:27 WBC 13.13 H RBC 4.93 Hgb 13.2 L Hct 39.6 MCV 80 MCH 27 MCHC 33 RDW Coeff of [place] 13.9 Plt Count 297 Neut % (Auto) 71.6 Lymph % (Auto) 19.2 L [place] % (Auto) 8.4 Eos % (Auto) 0.2 Baso % (Auto) 0.2 Neut # (Auto) 9.40 H Lymph # (Auto) 2.50 [place] # (Auto) 1.10 H Eos # (Auto) 0.00 Baso # (Auto) 0.00 Abs Immat Gran (auto) 0.10 Imm/Tot Granulo (auto) 0.4 INR D-Dimer Quant (PE/DVT) 1.48 H Sodium 135 Potassium 2.4 L* Chloride 96 Carbon Dioxide 24 Anion Gap 15 BUN 24 Creatinine 1.6 H Estimated Creat Clear Estimated GFR 49 Glucose 119 H Hemoglobin A1c Calcium 9.4 Magnesium 1.7 Troponin I 0.07 H* NT-Pro-B Natriuret Pep 595 Lab Acknowledgement POC Troponin I 0.07 H Discharge Plan Discharge Disposition: [facility] Discharge Location: [facility] Date of Admission: 06/02/23 09:38 Attending Provider on Discharge: Jaye Lloyd Primary Care Provider: Provider,Not a Local Discharge Orders: Transfer of Care to Other Hospital (ORDER); Ordered 06/02/23 Ordered By: Jaye Lloyd Oxygen: No Urinary Catheter: No Services not available here: cardiology
[2023-06-02] MEDS: POTASSIUM CHLORIDE 10 MEQ/100 ML PIGGYBACK 80 MEQ IVPB (12:39)
[2023-06-02] MEDS: HEPARIN 5,000 UNIT/0.5 ML INJ 4000 UNIT IVP (12:50)
[2023-06-02] MEDS: HEPARIN 25,000 UNIT/500 ML BAG 20 UNIT IV (12:50)
--- NOTE | 2023-06-02 15:36 | PC.NURSE ---
shift note: pt rating lt mid lateral chest pain 5/10. Pt received 1 nitro @ 0940 with no change in pain. Tele =NSR. Pt vss stable. IV Lt hand started x1 attempt. Buddy BRANDON gave nurse to nurse report via phone to receiving hospital. pt dc'd by EMS @ 1330.
== END 2023-06-02 13:30 | disposition short-term general hospital (02) | DRG 281 ==
LOC: ED 23:24 → MEDSURG 06-02 03:32
PROVIDERS: Admitting Provider Internal Medicine; Emergency Provider Family Medicine; Visit Provider Family Medicine
DX: I21.4 Non-ST elevation (NSTEMI) myocardial infarction (principal); N17.8 Other acute kidney failure; S22.32XA Fracture of one rib, left side, initial encounter for closed fracture; I25.10 Atherosclerotic heart disease of native coronary artery without angina pectoris; E87.6 Hypokalemia; E11.9 Type 2 diabetes mellitus without complications; Z79.84 Long term (current) use of oral hypoglycemic drugs; Z79.85 Long-term (current) use of injectable non-insulin antidiabetic drugs; I10 Essential (primary) hypertension; R00.2 Palpitations; I95.1 Orthostatic hypotension; W18.39XA Other fall on same level, initial encounter; Y93.67 Activity, basketball; S00.31XA Abrasion of nose, initial encounter; S00.412A Abrasion of left ear, initial encounter
CPT/HCPCS: 36415; 70450; 70486; 71045; 71101; 80048; 83036; 83735; 83880; 84484; 85025; 85027; 85379; 85610; 93005; 95992; 99285; G0378; A9270; J1644; J3480; J7030

== ENCOUNTER 2023-06-02 13:20 | Outpatient (CLI) | payer OTHER, SELFPAY | END 2023-06-02 13:21 | disposition home or self-care (01) | LOC: AMB 06-10 16:34 | PROVIDERS: Visit Provider Family Medicine | DX: I21.4 Non-ST elevation (NSTEMI) myocardial infarction (principal); I25.10 Atherosclerotic heart disease of native coronary artery without angina pectoris; S22.39XS Fracture of one rib, unspecified side, sequela; E87.6 Hypokalemia | CPT/HCPCS: A0425; A0434 ==